=== PATIENT | female | born 1980 | race Caucasian/White ===

== ENCOUNTER 2020-02-02 22:19 | Emergency (ER) | payer OTHER, SELFPAY ==
--- NOTE | ~2020-02-02 | CT_ITS ---
EXAMINATION: CT abdomen pelvis w con DATE: 02/03/2020 01:06 INDICATION: Right lower quadrant abdominal pain TECHNIQUE: Computed tomography (CT) of the abdomen and pelvis was performed with 100 cc Omnipaque 350 intravenous contrast. The dose-length product was 269.03 mGy-cm. Automated exposure control and iter ative reconstruction technique were employed. COMPARISON: CT dated 06/26/2014 FINDINGS: Lung bases unremarkable. No significant pleural or pericardial effusion. Heart size normal. There are multiple cysts of the right ovary, largest measuring 7.3 x 4.4 cm. There is a cystic somewh at tubular structure right adnexa, possibly dilated fallopian tube. Left ovary and cyst measures up t o 3.8 x 3.2 cm with small amount of calcification along the posterior wall. Probable small left hydro salpinx. The liver, spleen, pancreas, adrenal glands and right kidney are unremarkable. Small subcentimeter hy podensities of the left kidney, most likely cysts. There are nonobstructing left renal stones. Bowel pattern is nonobstructive. Normal appendix. Small amount of free fluid in the pelvis. Small fat-conta ining umbilical hernia. No osteolytic or osteoblastic lesions. Status post hysterectomy. IMPRESSION: 1. Bilateral adnexal cystic lesions with possible bilateral hydrosalpinx. Small amount of free fluid in the pelvis. Differential diagnosis includes functional cysts, cystadenoma/cystadenocarcinoma. Alvaro mmend follow-up ultrasound in 3-4 weeks to assess for resolution. 2: Nonobstructing left nephrolithiasis. Reviewed, dictated and finalized at location A. MING POOL SERVICE TECHNICIAN IMPRESSION: 1. Bilateral adnexal cystic lesions with possible bilateral hydrosalpinx. Small amount of free fluid in the pelvis. Differential diagnosis includes functional cysts, cystadenoma/cystadenocarcinoma. Recommend follow-up ultrasound in 3-4 w eeks to assess for resolution. 2: Nonobstructing left nephrolithiasis.
[2020-02-02 22:23] VITALS: BP 153/96; PULSE 97; RESP 20; TEMP 36.1; O2SAT 100
[2020-02-02 23:52] VITALS: BP 129/89; PULSE 76; RESP 16; O2SAT 100
--- NOTE | 2020-02-03 00:12 | ED.ABDPAIN ---
HPI - Abdominal Pain General Chief Complaint: Abdominal Pain Stated Complaint: stomach pain Time Seen by Provider: 02/02/20 23:44 Source: patient and RN notes reviewed Mode of arrival: ambulatory Limitations: no limitations History of Present Illness HPI narrative: Pt is a 39 y/o female presenting to the ED c/o ABD pain. Pt reports she started experiencing diffuse ABD pain about 2 hrs ago. Pt also reports N/V, diarrhea, and chills, but denies rectal bleeding or hematuria. Pt notes she currently has bilateral ovarian cysts and a Hx of HTN, but denies Hx's of DM or Appendectomy. Pertinent past history: other (Bilateral ovarian cysts) Onset (ago): hour(s) (2) Location: diffuse Associated symptoms: nausea, vomiting, diarrhea and chills Related Data Allergies Allergy/AdvReac Type Severity Reaction Status Date / Time No Known Allergies Allergy Unknown Verified 07/23/15 17:18 Review of Systems Review of Systems: All systems reviewed & are unremarkable except as noted in HPI and below Constitutional: Constitutional: Reports chills Gastrointestinal: Gastrointestinal: Reports abdominal pain (Diffuse), Denies hematochezia, Reports diarrhea, Reports nausea and Reports vomiting Genitourinary: Genitourinary: Denies hematuria PMFSH Past Medical History Medical History Abnormal uterine bleeding Asthma Bronchitis HTN (hypertension) Kidney stone UTI (urinary tract infection) Surgical History Surgical History H/O dilation and curettage H/O tubal ligation H/O: hysterectomy Social History Social History (Updated 02/03/20 @ 00:31 by Lito Ramos) Smoking status: Unknown if ever smoked Gender identity (if verbalized by the patient): Female Exam Narrative: Exam Narrative: GENERAL: Well-appearing, well-nourished, and in no acute distress. HEAD: Normocephalic, atraumatic. EYES: PERRLA and EOMI. ENT: Nares clear, Mucous membranes moist. NECK: Supple. CHEST: Clear to auscultation. No respiratory distress. HEART: Regular rate and rhythm. No murmur heard. Normal peripheral pulses. ABDOMEN: Soft, Mild tenderness in the lower abd , nondistended, normal active bowel sounds. EXTREMITIES: Normal range of motion. No edema. SKIN: Warm, dry, no rash. NEURO: No focal deficits. Alert and oriented x3. PSYCH: Normal mood and affect. Course Course Emergency Course: Patient states her pain is much improved, I discussed CT findings with the patient and her . She is aware of her ovarian cyst and she wants referral to see Dr. Martinez. Vital Signs Vital signs: Vital Signs Temperature 36.1 C L 02/02/20 22:23 Pulse Rate 97 02/02/20 22:23 Respiratory Rate 20 02/02/20 22:23 Blood Pressure 153/96 H 02/02/20 22:23 Pulse Oximetry 100 02/02/20 22:23 Temperature 36.1 C L 02/02/20 22:23 Pulse Rate 96 02/03/20 01:40 Respiratory Rate 18 02/03/20 01:40 Blood Pressure 127/76 02/03/20 01:40 Pulse Oximetry 99 02/03/20 01:40 MDM - Abdominal Pain Lab Data Result diagrams: 02/03/20 00:22 02/03/20 00:22 Labs: Lab Results 02/02/20 02/03/20 02/03/20 Range/Units 23:56 00:22 00:22 WBC 11.2 H (4.5-10.0) K/mm3 RBC 3.97 L (4.2-5.4) M/mm3 Hgb 12.4 (12.0-15.0) g/dL Hct 36.1 L (37.0-47.0) % MCV 90.9 (80-100) fl MCH 31.2 (26-34) pg MCHC 34.3 (32-36) g/dl RDW 11.7 (11.5-14.5) % Plt Count 188 (150-375) k/mm3 MPV 10.7 H (7.4-10.4) fl Immature Gran % (Auto) 0.3 (0-0.5) % Neut % (Auto) 84.9 H (45.5-73.1) % Lymph % (Auto) 9.8 L (18.3-44.2) % Clare % (Auto) 4.6 (2.6-8.5) % Eos % (Auto) 0.2 (0-4.4) % Baso % (Auto) 0.2 (0.2-1.2) % Lymph # (Auto) 1.10 (0.9-3.2) K/mm3 Clare # (Auto) 0.5 (0.1-0.6) K/mm3 Eos # (Auto) 0.0 (0-0.3) K/mm3 Baso # (Auto) 0.0 (0.0-0.1) K/mm3 Abs Immat Gran (auto) 0.03 (0.00-0.031) K
[2020-02-03 00:28] LABS: Basophils Percent Auto 0.2 % (0.2-1.2); Eosinophils Percent Auto 0.2 % (0-4.4); Hematocrit 36.1 % (37.0-47.0); Hemoglobin 12.4 g/dL (12.0-15.0); Immature Granulocyte Absolute 0.03 K/mm3 (0.00-0.031); Immature Granulocyte Percent A 0.3 % (0-0.5); Lymphocytes Percent Auto 9.8 % (18.3-44.2); Mean Corpuscular HGB Conc 34.3 g/dl (32-36); Mean Corpuscular Hemoglobin 31.2 pg (26-34); Mean Corpuscular Volume 90.9 fl (80-100); Mean Platelet Volume 10.7 fl (7.4-10.4); Monocytes Absolute Auto 0.5 K/mm3 (0.1-0.6); Monocytes Percent Auto 4.6 % (2.6-8.5); Neutrophils Absolute Auto 9.5 K/mm3 (1.3-6.7); Neutrophils Percent Auto 84.9 % (45.5-73.1); Platelet Count Result 188 k/mm3 (150-375); Red Blood Count 3.97 M/mm3 (4.2-5.4); Red Cell Distribution Width 11.7 % (11.5-14.5); White Blood Count 11.2 K/mm3 (4.5-10.0)
[2020-02-03 00:28] LABS: Add Urine Microscopic? YES; Appearance Urine Cloudy (Clear); Bacteria Urine Trace /hpf; Bilirubin Urine Negative (Negative); Blood Urine Negative (Negative); Calcium Oxalate Crystals Urine Present /hpf; Color Urine Yellow (Yellow); Glucose Urine UA Negative (Negative); Ketones Urine Negative (Negative); Leukocyte Esterase Ur 2+ LEU/UL (Negative); Mucus Urine Heavy /lpf; Nitrate Urine Negative (Negative); Protein Urine Negative (Negative); Specific Grav Ur 1.026 (1.001-1.035); Squamous Epithelial Cell Urine Moderate /hpf (Few); Urobilinogen Urine Negative mg/dL (<2.0); WBC Urine 16-20 /hpf
[2020-02-03] MEDS: ONDANSETRON INJ 4 MG/2 ML VIAL IV PUSH (00:37)
[2020-02-03] MEDS: MORPHINE SULFATE 4 MG/ML INJ IV PUSH (00:37)
[2020-02-03] MEDS: SODIUM CHLORIDE 0.9% IV 1,000 ML 999 ML IV CONT (00:38)
[2020-02-03 00:41] LABS: Alanine Aminotransferase 24 U/L (4-35); Albumin Level 4.7 g/dL (3.5-5.1); Alkaline Phosphatase 84 U/L (38-126); Aspartate Amino Transferase 29 U/L (14-36); Bilirubin,Total 0.5 mg/dL (0.2-1.3); Blood Urea Nitrogen 13 mg/dL (7-17); Calcium 9.8 mg/dL (8.4-10.2); Carbon Dioxide 24 mmol/L (22-30); Chloride 103 mmol/L (98-107); Estimated CRCL calculation 101 ml/min; Estimated Glomerular Filt Rate > 60; Glucose 133 mg/dL (65-105); Lactic Acid Reflex 1.5 mmol/L (0.7-2.1); Lipase 80 U/L (23-300); Potassium 3.7 mmol/L (3.4-5.0); Sodium 136 mmol/L (137-145)
[2020-02-03 01:16] VITALS: BP 123/84; PULSE 91; RESP 18; O2SAT 100
[2020-02-03 01:40] VITALS: BP 127/76; PULSE 96; RESP 18; O2SAT 99
[2020-02-03 02:17] VITALS: BP 130/79; PULSE 80; RESP 18; O2SAT 99
== END 2020-02-03 02:19 | disposition home or self-care (01) ==
PROVIDERS: Emergency Provider Family Medicine; PCP Physician Assistant
DX: R10.30 Lower abdominal pain, unspecified (principal); I10 Essential (primary) hypertension; Z87.442 Personal history of urinary calculi; Z87.440 Personal history of urinary (tract) infections; J45.909 Unspecified asthma, uncomplicated; N83.202 Unspecified ovarian cyst, left side; N83.201 Unspecified ovarian cyst, right side
CPT/HCPCS: 36415; 74177; 80053; 81001; 83605; 83690; 85025; 87086; 87088; 96361; 96374; 96375; 99284; J2270; J2405; J7030; Q9967

== ENCOUNTER 2020-02-16 14:23 | Outpatient (CLI) | payer OTHER, SELFPAY ==
--- NOTE | ~2020-02-16 | US_ITS ---
EXAMINATION: US pelvic complete w TV DATE: 02/16/2020 15:00 INDICATION: Right lower quadrant pain, prior hysterectomy TECHNIQUE: Multiple transabdominal and endovaginal sonographic images of the pelvis were obtained. COMPARISON: CT, 02/03/2020 FINDINGS: The uterus is surgically absent. The right ovary measures 8.3 x 5.8 x 7.1 cm. The ovaries h eterogeneous in appearance with multiple cysts and apparent 4.6 x 3.5 cm solid appearing mass versus hemorrhagic cyst. The left ovary measures 5.6 x 3.5 x 3.1 cm. A simple cystic area of the left adnexa measures up to 3.6 cm. There is vascular flow in the ovaries. There is free fluid in the pelvis. IMPRESSION: 1. Complex bilateral adnexal lesions. Although findings could reflect combination of hemorrhagic and simple cysts, further evaluation by pelvic MRI without and with contrast is recommended. Reviewed, dictated and finalized at location A. IMPRESSION: 1. Complex bilateral adnexal lesions. Although findings could reflect combinati on of hemorrhagic and simple cysts, further evaluation by pelvic MRI without an d with contrast is recommended.
== END 2020-02-16 14:24 | disposition home or self-care (01) ==
LOC: ANHIMG 14:29
PROVIDERS: PCP Physician Assistant; Visit Provider Obstetrics & Gynecology
DX: R10.2 Pelvic and perineal pain (principal)
CPT/HCPCS: 76830; 76856

== ENCOUNTER 2021-10-27 10:36 | Outpatient (CLI) | payer OTHER, SELFPAY ==
--- NOTE | ~2021-10-27 | US_ITS ---
EXAMINATION: US pelvic complete w TV DATE: 10/27/2021 11:10 INDICATION: Bilateral ovarian cysts. Comparison:Ultrasound dated 02/16/2020 TECHNIQUE: Multiple transabdominal and endovaginal sonographic images of the pelvis performed. FINDINGS: The uterus is surgically absent. The right ovary is not visualized. The left ovary contains a 4.4 x 3.6 x 4.1 cm cyst. There is no free fluid in the pelvis. There are no abnormal masses seen on either side. IMPRESSION: 1. Left ovarian simple cyst measuring 4.4 cm. Reviewed, dictated and finalized at location B. EF OPERATOR
== END 2021-10-27 10:37 | disposition home or self-care (01) ==
LOC: ANHIMG 10:41
PROVIDERS: PCP Physician Assistant; Visit Provider Obstetrics & Gynecology Gynecology
DX: N83.202 Unspecified ovarian cyst, left side (principal)
CPT/HCPCS: 76830; 76856

== ENCOUNTER 2021-11-06 17:34 | Outpatient (CLI) | payer OTHER, SELFPAY ==
--- NOTE | ~2021-11-06 | MM_ITS ---
EXAMINATION: MM screening aurea BI w chaitanya HISTORY: Screening TECHNIQUE: Craniocaudal and mediolateral oblique 3-D tomosynthesis images were obtained and synthetic 2-D images were generated. CAD analysis was submitted and interpreted. COMPARISON: No prior mammogram is available for comparison at this institution. BREAST PARENCHYMAL COMPOSITION: There are scattered areas of fibroglandular density. FINDINGS: There is no evidence of suspicious mass, calcification, or architectural distortion to sugg est malignancy in either breast. There has been no suspicious interval change. IMPRESSION: 1. No mammographic evidence of malignancy. 2. Recommend routine screening mammography in one year. BI-RADS Category 1: Negative Reviewed, dictated and finalized at location A. CAL REVIEWER
== END 2021-11-06 17:35 | disposition home or self-care (01) ==
LOC: ANHIMG 17:36
PROVIDERS: PCP Physician Assistant; Visit Provider Obstetrics & Gynecology Gynecology
DX: Z12.31 Encounter for screening mammogram for malignant neoplasm of breast (principal)
CPT/HCPCS: 77063; 77067

== ENCOUNTER 2023-04-29 12:34 | Outpatient (CLI) | payer OTHER, SELFPAY ==
--- NOTE | ~2023-04-29 | US_ITS ---
EXAMINATION: US pelvic complete w TV DATE: 04/29/2023 13:35 INDICATION: Left ovarian cyst. TECHNIQUE: Multiple transabdominal and transvaginal sonographic images of the pelvis were obtained. COMPARISON: Ultrasound 10/27/2021, CT abdomen and pelvis 02/03/2020 FINDINGS: TRANSABDOMINAL ULTRASOUND: The uterus is absent. There is physiologic free fluid in the pelvis. TRANSVAGINAL ULTRASOUND: The right ovary is not visualized. The left ovary measures 3.1 x 2.1 x 1.8 cm. There is normal vascul ar flow in left ovary. IMPRESSION: 1. Normal left ovary. Reviewed, dictated and finalized at location A. IMPRESSION: 1. Normal left ovary.
== END 2023-04-29 12:35 | disposition home or self-care (01) ==
PROVIDERS: Visit Provider Obstetrics & Gynecology
DX: N83.209 Unspecified ovarian cyst, unspecified side (principal)
CPT/HCPCS: 76830; 76856

== ENCOUNTER 2023-08-30 08:49 | Emergency (ER) | payer SELFPAY ==
--- NOTE | ~2023-08-30 | CT_ITS ---
EXAMINATION: CT abdomen pelvis wo con DATE: 08/30/2023 09:41 INDICATION: Left flank pain TECHNIQUE: Computed tomography (CT) of the abdomen and pelvis was performed without intravenous contr ast. Automated exposure control and iterative reconstruction technique were employed. The dose-length product was 263.56 mGy-cm. COMPARISON: None FINDINGS: There are multiple discoid atelectasis in the right middle lobe and lingula. Heart size is normal. No pericardial or pleural effusion. Liver, gallbladder, spleen, pancreas and bilateral adrenal glands a re normal. 1 cm cyst at the lower pole of the left kidney. Bilateral nephrolithiasis with 5 stones me asuring up to 4 mm in the left kidney and 3 stones measuring up to 3 mm in the right kidney. No urete ral stones or hydronephrosis. Bladder is normal. The uterus is not identified and has likely been otilia gically resected. Bowels including the appendix are normal. Tiny fat-containing umbilical hernia. No free intraperitoneal gas or fluid. No pathologically enlarged abdominal or pelvic lymphadenopathy. Tr ansitional sacralized L5 segment with mild lumbar spondylosis. IMPRESSION: 1. Bilateral nonobstructing nephrolithiasis. No evident ureteral stones. Reviewed, dictated and finalized at location A.
[2023-08-30 09:08] VITALS: BP 120/85; PULSE 60; RESP 18; TEMP 36.7; O2SAT 100
--- NOTE | 2023-08-30 09:58 | ED.GENADULT ---
HPI - General Adult General Chief complaint: Back Pain/Injury Stated complaint: BACK PAIN X1D NO INJURY Time Seen by Provider: 08/30/23 09:06 Source: patient Mode of arrival: ambulatory Limitations: no limitations History of Present Illness HPI narrative: This is a 42-year-old female who presents to the ED with chief complaint of atraumatic back pain that began yesterday. Reports that she was sitting in the bathtub yesterday and noticed that when she was first getting out. Reports pain is in the left lower back/left flank area. Reports history of kidney stones in the past but this does not feel quite the same. She has additional concerns of difficulty with urination. She states that she is able to urinate just fine and if she stays well-hydrated, but it is difficult when she does not drink enough water. 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 Denies fevers, chills, nausea, vomiting, abdominal pain, bowel or bladder dysfunction, numbness, weakness. Related Data Allergies Allergy/AdvReac Type Severity Reaction Status Date / Time No Known Allergies Allergy Unknown Verified 08/30/23 09:11 Review of Systems Review of Systems: All systems as dictated in [facility] Past Medical History Medical History (Updated 08/30/23 @ 11:07 by Antoine Rivera PA-C) Abnormal uterine bleeding Asthma Bronchitis HTN (hypertension) Kidney stone UTI (urinary tract infection) Surgical History Surgical History H/O dilation and curettage H/O tubal ligation H/O: hysterectomy Social History Social History (Updated 02/03/20 @ 00:31 by Lito Ramos) Smoking status: Unknown if ever smoked Gender identity (if verbalized by the patient): Female Exam Narrative: GENERAL: Well-appearing, well-nourished, and in no acute distress. HEAD: Normocephalic, atraumatic. EYES: PERRLA and EOMI. ENT: Nares clear, no rhinorrhea or epistaxis. Mucous membranes moist. Oropharynx without tonsillar hypertrophy exudate or other lesions. NECK: Supple. No adenopathy or masses. CHEST: No respiratory distress. Clear to auscultation. No wheezes rales or rhonchi HEART: Regular rate and rhythm. No murmur heard. Normal peripheral pulses. ABDOMEN: Left flank tenderness. Soft, nontender, nondistended, normal active bowel sounds. MSK: Left lower lumbar paraspinal tenderness present. No midline spinal tenderness. Normal range of motion. No edema. SKIN: Warm, dry, no rash. NEURO: Alert and oriented x3. No focal deficits. PSYCH: Normal mood and affect. Course Vital Signs Vital signs: Vital Signs Temperature 98.1 F 08/30/23 09:08 Pulse Rate 60 08/30/23 09:08 Respiratory Rate 18 08/30/23 09:08 Blood Pressure 120/85 08/30/23 09:08 Pulse Oximetry 100 08/30/23 09:08 Oxygen Delivery Room Air 08/30/23 09:08 Temperature 98.1 F 08/30/23 09:08 Pulse Rate 60 08/30/23 11:19 Respiratory Rate 16 08/30/23 11:19 Blood Pressure 124/81 08/30/23 11:19 Pulse Oximetry 100 08/30/23 11:19 Oxygen Delivery Room Air 08/30/23 09:08 Medical Decision Making [facility] Narrative Medical decision making narrative: This is a 42-year-old female who presents to the ED with chief complaint of left lower back pain beginning yesterday. Also endorses urinary difficulty. Vitals are normal. Exam shows left flank and left lower paraspinal tenderness. Lab work shows a largely unremarkable CBC and CMP. Urinalysis shows 1+ leuks. CT abdomen pelvis without contrast is negative for any acute findings. No ureteral stones causing her pain. There may be a component of UTI contributing to pain but her symptoms are most likely consistent with lumbar strain as she has a laborious job as a water main pipe layer. Prescription for Keflex given. Pt will be discharged in stable condition. Return precautions given and supportive measures discussed. Pt is understanding and
[2023-08-30 10:36] VITALS: BP 137/83; PULSE 73; RESP 18; O2SAT 100
[2023-08-30 10:41] LABS: Basophils Percent Auto 0.7 % (0.2-1.2); Eosinophils Absolute Auto 0.2 K/mm3 (0-0.3); Eosinophils Percent Auto 5.4 % (0-4.4); Hematocrit 39.5 % (37.0-47.0); Hemoglobin 13.3 g/dL (12.0-15.0); Immature Granulocyte Absolute 0.01 K/mm3 (0.00-0.031); Immature Granulocyte Percent A 0.2 % (0-0.5); Lymphocytes Absolute Auto 1.64 K/mm3 (0.9-3.2); Lymphocytes Percent Auto 38.3 % (18.3-44.2); Mean Corpuscular HGB Conc 33.7 g/dl (32-36); Mean Corpuscular Hemoglobin 31.1 pg (26-34); Mean Corpuscular Volume 92.3 fl (80-100); Mean Platelet Volume 10.5 fl (7.4-10.4); Monocytes Absolute Auto 0.3 K/mm3 (0.1-0.6); Monocytes Percent Auto 7.5 % (2.6-8.5); Neutrophils Absolute Auto 2.1 K/mm3 (1.3-6.7); Neutrophils Percent Auto 47.9 % (45.5-73.1); Platelet Count Result 191 k/mm3 (150-375); Red Blood Count 4.28 M/mm3 (4.2-5.4); Red Cell Distribution Width 11.9 % (11.5-14.5); White Blood Count 4.3 K/mm3 (4.5-10.0)
[2023-08-30 10:51] LABS: Alanine Aminotransferase 29 U/L (6-35); Albumin Level 4.5 g/dL (3.5-5.1); Alkaline Phosphatase 116 U/L (38-126); Anion Gap 7 mmol/L (8-16); Aspartate Amino Transferase 27 U/L (14-36); Bilirubin,Total 0.7 mg/dL (0.2-1.3); Blood Urea Nitrogen 14 mg/dL (7-17); Calcium 9.7 mg/dL (8.4-10.2); Carbon Dioxide 26 mmol/L (22-30); Chloride 105 mmol/L (98-107); Estimated CRCL calculation 101 ml/min; Estimated Glomerular Filt Rate > 60; Glucose 94 mg/dL (65-110); Potassium 3.8 mmol/L (3.4-5.0); Sodium 138 mmol/L (137-145)
[2023-08-30 10:53] LABS: Appearance Urine Clear (Clear); Bacteria Urine Rare /hpf; Bilirubin Urine Negative (Negative); Blood Urine Negative (Negative); Color Urine Yellow (Yellow); Glucose Urine UA Negative (Negative); Ketones Urine Negative (Negative); Leukocyte Esterase Ur 1+ LEU/UL (Negative); Need Manual Microscopic Reviewed; Nitrate Urine Negative (Negative); Non Pathogenic Casts 0-2; Protein Urine Negative (Negative); RBC Urine 0-2 /hpf (0-2); Specific Grav Ur 1.014 (1.001-1.035); Squamous Epithelial Cell Urine Occasional /hpf (Few); Urobilinogen Urine 0.2 mg/dL (<2.0); WBC Urine 0-5 /hpf; pH Urine 6.5 (5.0-9.0)
[2023-08-30 11:03] LABS: Add Urine Microscopic? YES
[2023-08-30 11:19] VITALS: BP 124/81; PULSE 60; RESP 16; O2SAT 100
== END 2023-08-30 11:21 | disposition home or self-care (01) ==
PROVIDERS: Emergency Provider Physician Assistant; PCP Internal Medicine
DX: N39.0 Urinary tract infection, site not specified (principal); J45.909 Unspecified asthma, uncomplicated; I10 Essential (primary) hypertension; Z87.442 Personal history of urinary calculi; Z87.440 Personal history of urinary (tract) infections
CPT/HCPCS: 36415; 74176; 80053; 81001; 85025; 99284

== ENCOUNTER 2023-11-25 14:20 | Emergency (ER) | payer SELFPAY ==
[2023-11-25 14:29] VITALS: BP 119/69; PULSE 100; RESP 18; TEMP 36.4; O2SAT 99
--- NOTE | 2023-11-25 14:42 | PC.NURSE ---
pt seen leaving lobby with family
== END 2023-11-25 14:42 | disposition left against medical advice (07) ==
PROVIDERS: PCP Internal Medicine
DX: R19.7 Diarrhea, unspecified (principal)
CPT/HCPCS: 99199

== ENCOUNTER 2024-11-24 06:38 | Emergency (ER) | payer SELFPAY ==
--- NOTE | ~2024-11-24 | XR_ITS ---
EXAMINATION: XR chest 1V portable DATE: 11/24/2024 10:51 INDICATION: Shortness of breath TECHNIQUE: frontal view of the chest was obtained. COMPARISON: Chest radiograph dated 06/26/2014 FINDINGS: The lungs are clear with no focal airspace opacities, pulmonary edema, pleural effusion or pneumothor ax. The cardiomediastinal silhouette is normal. Visualized bones and soft tissues are unremarkable. IMPRESSION: 1. No acute cardiopulmonary disease. Reviewed, dictated and finalized at location B. L SPECIALIST
[2024-11-24 06:40] VITALS: BP 112/62; PULSE 79; RESP 18; TEMP 36.6; O2SAT 98
[2024-11-24 08:49] VITALS: BP 107/75; PULSE 58; RESP 20; TEMP 36.1; O2SAT 100
[2024-11-24 11:17] LABS: Strep Group A RT-PCR NOT DETECTED (Negative)
[2024-11-24 11:29] LABS: Influenza A QL RT-PCR Negative (Negative); Influenza B QL RT-PCR Negative (Negative); RSV RNA, RT-PCR Negative (Negative); SARS-CoV-2 RNA PCR Negative (Negative)
--- NOTE | 2024-11-24 11:40 | ED_ITS ---
HPI - General Adult General Chief complaint: Upper Respiratory Infection Stated complaint: cough, sore throat Time Seen by Provider: 11/24/24 10:40 History of Present Illness HPI narrative: 43-year-old female presenting to the emergency department for evaluation for cough congestion and flu-like symptoms that have been going on for almost a month. 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 Patient states she developed symptoms approximately a month ago and did have some minor improvement then began worsening again. Related Data Allergies Allergy/AdvReac Type Severity Reaction Status Date / Time No Known Allergies Allergy Unknown Verified 08/30/23 09:11 Review of Systems Review of Systems: All systems reviewed & are unremarkable except as noted in HPI and below PMFSH Past Medical History Medical History (Updated 11/24/24 @ 11:43 by Bin Lees MD) UTI (urinary tract infection) Kidney stone Abnormal uterine bleeding Bronchitis Asthma HTN (hypertension) Surgical History Surgical History H/O: hysterectomy H/O tubal ligation H/O dilation and curettage Social History Social History (Updated 02/03/20 @ 00:31 by Lito Ramos) Smoking status: Unknown if ever smoked Gender identity (if verbalized by the patient): Female Exam Narrative: APPEARANCE: Well appearing, no pain, no distress, well-nourished. HEAD: normocephalic, atraumatic. EYES: PERRLA/EOMI, conjunctivae clear. NOSE: Normal no drainage EARS:TMS clear with good light reflex. THROAT: Pharynx clear, no exudate. NECK: Supple. No adenopathy, no masses. RESPIRATORY: Airway patent, respirations nonlabored. Clear to auscultation bilaterally, no rales, rhonchi, wheezing. CARDIOVASCULAR: Regular rate and rhythm without murmurs rubs or gallops. ABDOMINAL: Soft, nontender, nondistended, normal bowel sounds MUSCULOSKELETAL: Moves all extremities. Strength/ROM intact, No edema, No calf tenderness. NEURO: Alert. Cranial nerves II through XII intact. Grossly intact SKIN: Warm, dry. Normal Color Course Vital Signs Vital signs: Vital Signs Temperature 97.8 F 11/24/24 06:40 Pulse Rate 79 11/24/24 06:40 Respiratory Rate 18 11/24/24 06:40 Blood Pressure 112/62 11/24/24 06:40 Pulse Oximetry 98 11/24/24 06:40 Oxygen Delivery Room Air 11/24/24 06:40 Temperature 98.5 F 11/24/24 12:21 Pulse Rate 75 11/24/24 12:21 Respiratory Rate 19 11/24/24 12:21 Blood Pressure 111/79 11/24/24 12:21 Pulse Oximetry 100 11/24/24 12:21 Oxygen Delivery Room Air 11/24/24 12:15 Medical Decision Making [facility] Narrative Medical decision making narrative: 43-year-old female presented emergency department for evaluation for worsening cough congestion and flu-like symptoms. Patient is afebrile and is negative for influenza RSV COVID and strep. Chest x-ray shows no acute cardiopulmonary abnormality. With the duration for the patient's symptoms I will be treating her with antibiotics for suspected underlying pneumonia. Patient will be discharged home with Tessalon Perles and albuterol inhaler. Differential Diagnosis Differential Diagnosis: COVID, RSV, influenza, pneumonia, bronchitis, pneumothorax Vital Signs Vital Signs: Vital Signs Temperature 97.8 F 11/24/24 06:40 Pulse Rate 79 11/24/24 06:40 Respiratory Rate 18 11/24/24 06:40 Blood Pressure 112/62 11/24/24 06:40 Pulse Oximetry 98 11/24/24 06:40 Oxygen Delivery Room Air 11/24/24 06:40 Temperature 98.5 F 11/24/24 12:21 Pulse Rate 75 11/24/24 12:21 Respiratory Rate 19 11/24/24 12:21 Blood Pressure 111/79 11/24/24 12:21 Pulse Oximetry 100 11/24/24 12:21 Oxygen Delivery Room Air 11/24/24 12:15 Lab Data Lab results reviewed: Yes I reviewed the patient's lab results. Labs: Lab Results 11/24/24 Range/Units 10:46 Influenza A (RT-PCR) Negative (Negative) Influenza B (RT-PCR) Negative (Negative) RSV (RT-PCR) Negative (Negative) SARS-CoV-2 RNA (RT-PCR) Negative (Negative) Group A Strep (PCR) Not detected (Negative) Imaging Data Radiologist's impression: Impressions Chest X-Ray 11/24/24 11:03 IMPRESSION: 1. No acute cardiopulmonary disease. Discharge Plan Discharge Clinical Impression: Upper respiratory infection, Pneumonia Patient Disposition: Home, Self-Care Condition: Stable Instructions: Antibiotic Form, Pneumonia (ED) Additional Instructions: Antibiotic as directed until completed. Albuterol inhaler for cough and shortness of breath, Tessalon Perles for cough. Have close follow-up with your primary care physician. If you have any worsening symptoms then please call or return to the emergency department. Patient Language: Senegalese Prescriptions: New amoxicillin-pot clavulanate 875-125 mg tablet 1 tablet PO Q12H Qty: 14 0RF benzonatate 100 mg capsule 100 mg PO TID PRN (Reason: cough) Qty: 14 0RF azithromycin 250 mg tablet See Rx Instructions .ROUTE .COMPLEX Qty: 6 0RF Rx Instructions: For 250 mg dose pack: take 500 mg today (day 1), then 250 mg for 4 days (days 2-5) albuterol sulfate 90 mcg/actuation HFA aerosol inhaler 1 puff inhalation QID Qty: 6.7 0RF No Action ondansetron 4 mg tablet,disintegrating 4 mg PO Q6-8H PRN (Reason: nausea and vomiting) Qty: 14 0RF tramadol 50 mg tablet 50 mg PO Q6H PRN (Reason: pain) Qty: 14 0RF cephalexin 500 mg capsule 500 mg PO Q8H 7 Days Qty: 21 0RF Follow-up/Referrals: Esthela,Salbador Mace MD [Primary Care Provider] - Stand Alone Forms: Work/School Release IP
[2024-11-24 12:15] VITALS: O2SAT 100
[2024-11-24] MEDS: AMOXICILLIN/CLAVULANATE K 875-125 MG TAB 1 TABLET PO (12:17)
[2024-11-24] MEDS: AZITHROMYCIN 250 MG TABLET 500 MG PO (12:17)
[2024-11-24 12:21] VITALS: BP 111/79; PULSE 75; RESP 19; TEMP 36.9; O2SAT 100
--- OUTSIDE RECORDS SUMMARY | 2024-12-01 11:54 | XMS_ITS | Data Portability ---
[facility] Organization [facility] HILDARobin BanksVirginia H Address [address] [place] [address] Care Team Providers Care Singing Teacher Name Role Phone TOM BARTHOLOMEW Application Tester Assessment Encounter Date Assessment Date Assessment LastModified by Organization Details LastModified Time 03/09/2024 03/09/2024 Had a CAT scan late last fall with nonobstructing stones we will go ahead and get a colonoscopy she does have a history of a 4 cm left ovarian simple cyst and we may need to have her referred to SECURITIES ADVISER as follow-up with me will be in 3 months colonoscopy blood work urinalysis push fluids if she is not any better no etiology found on colonoscopy then we may consider rescanning and having her see SECURITIES ADVISER. For hypertension losartan dyslipidemia atorvastatin and Zetia Not available 03/27/2024 23:22:15 10/30/2024 10/30/2024 her viral syndrome is resolving hyperlipidemia Zetia and low-fat diet she will follow up with me in 4 months [email or web address] Not available 11/30/2024 17:53:25 Plan of Treatment Reminders Order Date Submit Date Provider Last Modified By Organization Details Last Modified Time Details Appointments ANY 15 2024 03:15P M Collins Esparza MD Not available Not available Not available Lab urinalysi s, microscop ic 2023 024 NASREEN [facility], [address], [address] [address], [place], [address], 10/04/2024 12:37:39 CMP, serum or plasma 2023 024 NASREEN [facility], [address], [address], [place], [address], 10/04/2024 12:37:39 lipid panel, serum [address] [facility], [address], [address], [place], [address], 10/04/2024 12:37:38 CBC w/ auto diff [address] [facility], [address], [address], [place], [address], 10/04/2024 12:37:40 Referral gynecolog ist referral - 3.1 cm solid ovarian mass 2022 023 [email or web address] Abran Renae MD, [facility] , [address], [place], [address], 04/28/2023 12:26:45 gastroent erologist referral 2022 023 karissa Ojeda, [facility] , [address], [place], [address], 09/09/2023 10:44:16 Procedures colonosco py screening (PROC) - family of colon cancer 2023 024 [email or web address] Darlene Armstrong MD, [address], [address], [place], [address], 09/06/2024 11:45:07 Surgeries None recorded. Imaging None recorded. Medication Orders losartan 25 mg tablet 2022 023 NINEVEH [facility]05, [address], [place], [place], [id number], 08/25/2023 16:57:02 atorvasta tin 20 mg tablet 2022 023 NINEVEH [facility] #01832, [address] [place], [place], [id number], 08/25/2023 16:57:03 ezetimibe 10 mg tablet 2022 023 NASREEN [facility] #29370, [address] [place], [place], [id number], 08/25/2023 16:57:04 losartan 25 mg tablet [address] [facility]64884, [address] [place], [place], [id number], 03/09/2024 17:42:40 atorvasta tin 20 mg tablet [address] [facility]44191, [address] [place], [place], [id number], 03/09/2024 17:42:40 ezetimibe 10 mg tablet [address] [facility] #34481, [address] [place] [address], [id number], 03/09/2024 17:42:40 Zetia 10 mg tablet [address] [facility]51461, [address] [place], [place], [id number], 10/30/2024 17:24:20 Patient TargetsNo targets recorded. Patient Instructions Encounter Date Encounter Id Patient Instructions Last Modified By Organization Details Last Modified Time 05/26/2023 [id number] constipation: care instructions [email or web address] Not available 05/26/2023 15:14:03 08/25/2023 [id number] tetanus and diphtheria booster: care instructions [email or web address] Not available 08/25/2023 16:56:56 learning about high blood pressure [facility] Not available 08/25/2023 16:56:56 high cholesterol : care instructions sieh Not available 08/25/2023 16:56:56 anemia: care instructions sieh Not available 08/25/2023 16:56:56 Reason for Referral Application Tester Referral for Ma ss of ovary 3.1 cm solid ovarian mass Referring Physician: Brandie Hedrick, Family Medicine, Encounter Date: 04/19/2023 Cuff Knitter Referral for Constipation Referring Physician: Abran Renae, ROLL OR TAPE EDGE MACHINE OPERATOR, Encounter Date: 05/26/2023 Results Created Date Observation Date Name Description Value Unit Range Abnormal Flag Note LastModifiedBy Organization Detail LastModifiedTime 10/03/20 24 10/04/2024 LIPID PROFI LE cholesterol, total 250 mg/dL 100-19 9 above high normal Not Available [facility] ([facility]) [address] [place], [address], 10/04/2024 12:37:38 10/03/2010/04/2024 LIPID PROFI LE triglyceride s 93 mg/dL 0-149 Not Available [facility] ([facility]) [address] [place], [address], 10/04/2024 12:37:38 10/03/20 24 10/04/2024 LIPID PROFI LE HDL cholesterol 59 mg/dL >39 Not Available [facility] ([facility]) [address] [place], [address], 10/04/2024 12:37:38 10/03/20 24 10/04/2024 LIPID PROFI LE VLDL cholesterol ivis 16 mg/dL 5-40 Not Available [facility] ([facility]) [address] [place], [address], 10/04/2024 12:37:38 10/03/2010/04/2024 LIPID PROFI LE LDL chol calc ([facility]) 175 mg/dL 0-99 above high normal Not Available [facility] ([facility]) [address] [place], [address], 10/04/2024 12:37:38 10/03/20 24 10/04/2024 COMP. METAB OLIC PANEL (14) glucose 90 mg/dL 70-99 Not Available [facility] ([facility]) [address] [place], [address], 10/04/2024 12:37:39 10/03/20 24 10/04/2024 COMP. METAB OLIC PANEL (14) BUN 13 mg/dL 6-24 Not Available [facility] ([facility]) [address] [place], [address], 10/04/2024 12:37:39 10/03/20 24 10/04/2024 COMP. METAB OLIC PANEL (14) creatinine 0.72 mg/dL 0.57-1 .00 Not Available [facility] ([facility]) [address] [place], [address], 10/04/2024 12:37:39 10/03/20 24 10/04/2024 COMP. METAB OLIC PANEL (14) eGFR 106 mL/mi n/1.7 3 >59 Not Available [facility] ([facility]) [address] [place], [address], 10/04/2024 12:37:39 10/03/20 24 10/04/2024 COMP. METAB OLIC PANEL (14) BUN/creatini ne ratio 18 9-23 Not Available [facility] ([facility]) [address] [place], [address], 10/04/2024 12:37:39 10/03/20 24 10/04/2024 COMP. METAB OLIC PANEL (14) sodium 142 mmol/ L 134-14 4 Not Available [facility] ([facility]) [address] [place], [address], 10/04/2024 12:37:39 10/03/20 24 10/04/2024 COMP. METAB OLIC PANEL (14) potassium 4.1 mmol/ L 3.5-5. 2 Not Available [facility] ([facility]) [address] [place], [address], 10/04/2024 12:37:39 10/03/20 24 10/04/2024 COMP. METAB OLIC PANEL (14) chloride 106 mmol/ L 96-106 Not Available [facility] ([facility]) [address] [place], [address], 10/04/2024 12:37:39 10/03/20 24 10/04/2024 COMP. METAB OLIC PANEL (14) carbon dioxide, total 23 mmol/ L 20-29 Not Available [facility] ([facility]) [address] [place], [address], 10/04/2024 12:37:39 10/03/20 24 10/04/2024 COMP. METAB OLIC PANEL (14) calcium 9.6 mg/dL 8.7-10 .2 Not Available [facility] ([facility]) [address] [place], [address], 10/04/2024 12:37:39 10/03/20 24 10/04/2024 COMP. METAB OLIC PANEL (14) protein, total 6.9 g/dL 6.0-8. 5 Not Available [facility] ([facility]) [address] [place], [address], 10/04/2024 12:37:39 10/03/20 24 10/04/2024 COMP. METAB OLIC PANEL (14) albumin 4.5 g/dL 3.9-4. 9 Not Available [facility] ([facility]) [address] [place], [address], 10/04/2024 12:37:39 10/03/20 24 10/04/2024 COMP. METAB OLIC PANEL (14) globulin, total 2.4 g/dL 1.5-4. 5 Not Available [facility] ([facility]) [address] [place], [address], 10/04/2024 12:37:39 10/03/20 24 10/04/2024 COMP. METAB OLIC PANEL (14) bilirubin, total 0.3 mg/dL 0.0-1. 2 Not Available [facility] ([facility]) [address] [place], [address], 10/04/2024 12:37:39 10/03/20 24 10/04/2024 COMP. METAB OLIC PANEL (14) alkaline phosphatase 104 IU/L 44-121 Not Available [facility] ([facility]) [address] [place], [address], 10/04/2024 12:37:39 10/03/20 24 10/04/2024 COMP. METAB OLIC PANEL (14) AST (SGOT) 20 IU/L 0-40 Not Available [facility] ([facility]) [address] [facility], [place], [address], 10/04/2024 12:37:39 10/03/20 24 10/04/2024 COMP. METAB OLIC PANEL (14) ALT (SGPT) 20 IU/L 0-32 Not Available [facility] ([facility]) [address] [facility], [place], [address], 10/04/2024 12:37:39 10/03/20 24 10/04/2024 MICRO SCOPI C EXAMI NATIO N WBC 0-5 /hpf 0-5 Not Available [facility] ([facility]) [address] [place], [address], 10/04/2024 12:37:39 10/03/20 24 10/04/2024 MICRO SCOPI C EXAMI NATIO N RBC 3-10 /hpf 0-2 abnormal Not Available [facility] ([facility]) [address] [place], [address], 10/04/2024 12:37:39 10/03/20 24 10/04/2024 MICRO SCOPI C EXAMI NATIO N epithelial cells (non renal) 0-10 /hpf 0-10 Not Available [facility] ([facility]) [address] [facility], [place], [address], 10/04/2024 12:37:39 10/03/20 24 10/04/2024 MICRO SCOPI C EXAMI NATIO N casts None seen /lpf nonese en Not Available [facility] ([facility]) [address] [facility], [place], [address], 10/04/2024 12:37:39 10/03/2010/04/2024 MICRO SCOPI C EXAMI NATIO N bacteria Few nonese en/few Not Available [facility] ([facility]) [address] [facility], [place], [address], 10/04/2024 12:37:39 10/03/20 24 10/04/2024 CBC WITH DIFFE RENTI AL/PL ATELE T WBC 3.9 x10e3 /uL 3.4-10 .8 Not Available [facility] ([facility]) [address] [facility], [place], [address], 10/04/2024 12:37:40 10/03/20 24 10/04/2024 CBC WITH DIFFE RENTI AL/PL ATELE T RBC 4.03 x10e6 /uL 3.77-5 .28 Not Available [facility] ([facility]) [address] [facility], [place], [address], 10/04/2024 12:37:40 10/03/20 24 10/04/2024 CBC WITH DIFFE RENTI AL/PL ATELE T hemoglobin 12.7 g/dL 11.1-1 5.9 Not Available [facility] ([facility]) [address] [facility], [place], [address], 10/04/2024 12:37:40 10/03/20 24 10/04/2024 CBC WITH DIFFE RENTI AL/PL ATELE T hematocrit 38.1 % 34.0-4 6.6 Not Available [facility] ([facility]) [address] [facility], [place], [address], 10/04/2024 12:37:40 10/03/20 24 10/04/2024 CBC WITH DIFFE RENTI AL/PL ATELE T MCV 95 fL 79-97 Not Available [facility] ([facility]) [address] [facility], [place], [address], 10/04/2024 12:37:40 10/03/20 24 10/04/2024 CBC WITH DIFFE RENTI AL/PL ATELE T MCH 31.5 pg 26.6-3 3.0 Not Available [facility] ([facility]) [address] [facility], [place], [address], 10/04/2024 12:37:40 10/03/20 24 10/04/2024 CBC WITH DIFFE RENTI AL/PL ATELE T MCHC 33.3 g/dL 31.5-3 5.7 Not Available [facility] ([facility]) [address] [facility], [place], [address], 10/04/2024 12:37:40 10/03/20 24 10/04/2024 CBC WITH DIFFE RENTI AL/PL ATELE T RDW 11.6 % 11.7-1 5.4 below low normal Not Available [facility] ([facility]) [address] [place], [address], 10/04/2024 12:37:40 10/03/20 24 10/04/2024 CBC WITH DIFFE RENTI AL/PL ATELE T platelets 217 x10e3 /uL 150-45 0 Not Available [facility] ([facility]) [address] [place], [address], 10/04/2024 12:37:40 10/03/20 10/04/2024 CBC WITH DIFFE RENTI AL/PL ATELE T neutrophils 42 % notest ab. Not Available [facility] ([facility]) [address] [facility], [place], [address], 10/04/2024 12:37:40 10/03/20 24 10/04/2024 CBC WITH DIFFE RENTI AL/PL ATELE T lymphs 42 % notest ab. Not Available [facility] ([facility]) [address] [facility], [place], [address], 10/04/2024 12:37:40 10/03/20 24 10/04/2024 CBC WITH DIFFE RENTI AL/PL ATELE T monocytes 10 % notest ab. Not Available [facility] ([facility]) [address] [facility], [place], [address], 10/04/2024 12:37:40 10/03/20 24 10/04/2024 CBC WITH DIFFE RENTI AL/PL ATELE T eos 5 % notest ab. Not Available [facility] ([facility]) [address] [facility], [place], [address], 10/04/2024 12:37:40 10/03/20 24 10/04/2024 CBC WITH DIFFE RENTI AL/PL ATELE T basos 1 % notest ab. Not Available [facility] ([facility]) [address] [facility], [place], [address], 10/04/2024 12:37:40 10/03/20 24 10/04/2024 CBC WITH DIFFE RENTI AL/PL ATELE T neutrophils (absolute) 1.7 x10e3 /uL 1.4-7. 0 Not Available [facility] ([facility]) [address] [facility], [place], [address], 10/04/2024 12:37:40 10/03/20 24 10/04/2024 CBC WITH DIFFE RENTI AL/PL ATELE T lymphs (absolute) 1.7 x10e3 /uL 0.7-3. 1 Not Available [facility] ([facility]) [address] [facility], [place], [address], 10/04/2024 12:37:40 10/03/20 24 10/04/2024 CBC WITH DIFFE RENTI AL/PL ATELE T monocytes(ab solute) 0.4 x10e3 /uL 0.1-0. 9 Not Available [facility] ([facility]) [address] [facility], [place], [address], 10/04/2024 12:37:40 10/03/20 24 10/04/2024 CBC WITH DIFFE RENTI AL/PL ATELE T eos (absolute) 0.2 x10e3 /uL 0.0-0. 4 Not Available [facility] ([facility]) [address] [facility], [place], [address], 10/04/2024 12:37:40 10/03/20 24 10/04/2024 CBC WITH DIFFE RENTI AL/PL ATELE T baso (absolute) 0.0 x10e3 /uL 0.0-0. 2 Not Available [facility] ([facility]) [address] [facility], [place], [address], 10/04/2024 12:37:40 10/03/20 24 10/04/2024 CBC WITH DIFFE RENTI AL/PL ATELE T immature granulocytes 0 % notest ab. Not Available [facility] ([facility]) [address] [facility], [place], [address], 10/04/2024 12:37:40 10/03/20 24 10/04/2024 CBC WITH DIFFE RENTI AL/PL ATELE T immature grans (abs) 0.0 x10e3 /uL 0.0-0. 1 Not Available [facility] ([facility]) [address] [facility], [place], [address], 10/04/2024 12:37:40 04/30/20 23 04/29/2023 US, pelvi s, trans abdom inal + trans vagin al No observ ation record ed. [facility] [address], [place], [address], 05/10/2023 17:43:51 08/30/20 23 08/30/2023 CT, abdom en + pelvi s, w/o contr ast No observ ation record ed. [facility] [address], [place], [address], 08/30/2023 18:01:39 11/24/20 24 11/24/2024 XR, chest No observ [facility]ion [facility] ed[facility] [address], [place], [address], 11/24/2024 15:38:48 Result Notes None recorded. Problems Name Problem SNOMED Code Status Onset Date Resolution Date Notes Provider Name and Address Organization Details Recorded Time Bilateral open-angl e glaucoma 808129844477 10823 Active 2016 treated at [facility] by Collins Cabrera; diagnosed August Jose Brenner PA-C Attn: Razia torres,[address] [place], [address], [facility] 7 12:18:53 Family history of diabetes mellitus 834848749 Active 2016 Jose Brenner PA-C Attn: Razia torres,[address] [facility], [place], [address], [facility] 7 12:23:08 Normal grief reaction 773348391 Active 2016 her mom's boyfriend suddenly of a heart attack .... Jose Brenner PA-C Attn: Razia torres,[address] [place], [address], [facility] 7 17:06:31 Upper respirato ry infection 00825754 Active 2016 Jose Brenner PA-C Attn: Razia torres,[address], [place], [address], [place] [facility] 7 10:56:31 Primary open angle glaucoma 11870043 Active 2017 mild : sees Dr Collins Cabrera, [facility] Jose Brenner PA-C Attn: Razia torres,[address], [place], [address], [place] [facility] 8 18:19:15 Acquired right hallux valgus 084833564399 106 Active 2017 Jose Brenner PA-C Attn: Razia torres,[address] [facility], [place], [address], [place] [facility] 8 13:26:02 Kidney stone 74233978 Active 2019 left ; see CT 02/03/2020 Jose Brenner PA-C Attn: Razia torres,[address] [facility], [place], [address], [place] [facility] 0 22:20:19 Dysuria 24578907 Active 2019 Jose Brenner PA-C Attn: Razia torres,[address] [facility], [place], [address], [place] [facility] 0 10:42:02 Pre-surge ry testing Active 2019 Jose Brenner PA-C Attn: Razia torres,[address] [facility], [place], [address], [place] [facility] 0 11:32:29 HIV screening Active 2021 Jose Brenner PA-C Attn: Razia torres,[address] [facility], [place], [address], [place] [facility] 2 09:46:14 At increased risk of nutrition al deficit 134153063 Active 2021 Jose Brenner PA-C Attn: Razia torres,[address] [facility], [place], [address], [place] [facility] 2 09:47:53 Serum vitamin B12 borderlin e low 325505732 Active 2021 Jose Brenner PA-C Attn: Razia g,[address] [place], [place], [address] [place] [address] 2, [place] [facility] 2 15:29:51 Allergic rhinitis 87762368 Active 2021 Jose Brenner PA-C Attn: Accountin g,[address] [place], [place], [address] [place] [address] 2, [place] [facility] 2 12:50:33 Acute sinusitis 23777293 Active 2021 Jose Brenner PA-C Attn: Accountmc g,[address] [place], [place], [address] [place] [address] 2, [place] [facility] 2 12:52:29 Essential hypertens ion 35564098 Active Jose Brenner PA-C Attn: Accountin g,[address] [place], [place], [address] [place] [address] 2, [place] - [facility] 6 12:54:33 Hyperlipi demia 78158315 Active Jose Brenner PA-C Attn: Accountmc g,[address] [place], [address] [place] [address] 2, [place] - [facility] 6 12:54:33 Dental abscess 960800203 Active Jose Brenner PA-C Attn: Accountin g,[address] [place], [place], [address] [place] [address] 2, [place] [facility] 5 15:44:00 Condyloma acuminata of vulva 263657969 Active [place], [place] - [facility] 4 18:55:55 Anemia 510463352 Active Jose Brenner PA-C Attn: Accountmc g,[address] [place], [place], [address] [place] [address] 2, [place] - [facility] 6 12:54:33 Depressiv e disorder 31299189 Active 2016 Jose Brenner PA-C Attn: Accountin g,[address] [facility], [place], [address], [place] [facility] 7 11:26:25 Insomnia 798927745 Active 2016 Jose Brenner PA-C Attn: Razia torres,[address] [facility], [place], [address], [place] [facility] 7 11:27:43 Adult health examinati on Active 2016 Jose Brenner PA-C Attn: Razia torres,[address] [facility], [place], [address], [place] [facility] 7 11:49:15 Problem Notes None recorded. Procedures Surgical History Date Name Laterality Status Provider Name and Address Organization Details Recorded Time 11/06/20 21 Date of Last Mammogram completed Mamie Sanchez [place] 04/19/2023 14:08:28 05/13/20 20 procedure on foot completed Lizette Palafox [place] 05/02/2021 16:48:37 08/24/20 17 AIMS completed Michelle Diaz [place] 08/24/2017 11:32:48 08/24/20 17 SLUMS EXAM completed Michelle Diaz [place] 08/24/2017 11:32:48 08/09/20 17 Date of Last Pap Smear completed MARGY [place] 08/09/2017 10:56:51 12/30/19 05 Tubal Ligation completed Marielle Gleason [place] 11/07/2014 10:48:44 10/29/19 99 Dilation and Curettage completed Marielle Gleason [place] 11/07/2014 10:48:25 hysterectomy completed Lavonne Rader [place] 03/09/2024 15:18:31 Imaging Results Imaging Date Name Status LastModified by Organization Details LastModified Time 04/29/2023 US, pelvis, transabdominal + transvaginal completed [facility] [address], [place], [address], 05/10/2023 17:43:51 08/30/2023 CT, abdomen + pelvis, w/o contrast completed [facility] [address], [place], [address], 08/30/2023 18:01:39 11/24/2024 XR, chest active [facility]quig[facility] [address], [place], [address], 11/24/2024 15:38:48 Procedure Notes None recorded. Medical Equipment None Reported. Allergies No known drug allergies Medications Name Sig Start Date Stop Date Status Note LastModified by Organization Details LastModified Time losartan 50 mg tablet TAKE 1 TABLET BY MOUTH EVERY MORNING 06/30 completed Not Available Not Available Not Available cyclobenzap rine 10 mg tablet TAKE 1 TABLET BY MOUTH EVERY 8 HOURS NEEDED 05/26 completed Not Available Not Available Not Available amoxicillin 500 mg capsule 06/30 completed Not Available Not Available Not Available latanoprost 0.005 % eye drops INSTILL 1 DROP INTO BOTH EYES EVERY NIGHT AT BEDTIME active Not Available Not Available No t Available atorvastati n 20 mg tablet TAKE 1 TABLET BY MOUTH EVERY MORNING active Not Available Not Available No t Available citalopram 40 mg tablet TAKE 1 TABLET BY MOUTH EVERY EVENING ABOUT 2 TO 3 HOURS BEFORE BEDTIME 05/02 completed Not Available Not Available Not Available trazodone 50 mg tablet TAKE 1 TABLET BY MOUTH EVERY DAY AT BEDTIME 05/02 completed Not Available Not Available Not Available polyethylen e glycol 3350 17 gram oral powder packet 08/09 completed Not Available Not Available Not Available atorvastati n 10 mg tablet TAKE 1 TABLET BY MOUTH EVERY MORNING 05/21 completed Not Available Not Available Not Available azithromyci n 250 mg tablet TK 2 TS PO ON DAY 1, THEN TK 1 T PO D FOR 4 DAYS 04/19 completed Not Available Not Available Not Available ibuprofen 800 mg tablet TAKE 1 TABLET BY MOUTH EVERY 8 HOURS WITH FOOD NEEDED 03/09 completed Not Available Not Available Not Available fluconazole 150 mg tablet TAKE 1 TABLET BY MOUTH TODAY THEN TAKE 1 TABLET BY MOUTH AFTER COMPLETIO N OF ANTIBIOTI C 04/30 completed Not Available Not Available Not Available benzonatate 200 mg capsule Take 1 capsule 3 times a day by oral route as needed for 10 days. 04/19 completed Not Available Not Available Not Available hydrocodone 5 mg-acetamin ophen 325 mg tablet 06/30 completed Not Available Not Available Not Available phenazopyri dine 200 mg tablet Take 1 tablet 3 times a day by oral route for 2 days. 05/21 completed Not Available Not Available Not Available metronidazo le 0.75 % (37.5 mg/5 gram) vaginal gel INSERT 1 APPLICATO RFUL VAGINALLY AT BEDTIME FOR 5 DAYS 04/23 completed Not Available Not Available Not Available Doc-Q-Lace 100 mg capsule Take 1 capsule twice a day by oral route with meals for 30 days. 08/09 completed Not Available Not Available Not Available penicillin V potassium 500 mg tablet 08/09 completed Not Available Not Available Not Available metronidazo le 500 mg tablet TAKE 1 TABLET BY MOUTH EVERY 12 HOURS FOR 7 DAYS 04/19 completed Not Available Not Available Not Available acetaminoph en 300 mg-codeine 30 mg tablet TK 1 T PO TID PRN P 05/02 completed Not Available Not Available Not Available ciprofloxac in 500 mg tablet Take 1 tablet twice a day by oral route for 10 days. 05/21 completed Not Available Not Available Not Available tramadol 50 mg tablet 05/21 completed Not Available Not Available Not Available amoxicillin 500 mg tablet 05/02 completed Not Available Not Available Not Available ketorolac 10 mg tablet 08/09 completed Not Available Not Available Not Available oxycodone-a cetaminophe n 5 mg-325 mg tablet TK 1 T PO Q 8 H PRF MODERATE PAIN 05/02 completed Not Available Not Available Not Available clonidine HCl 0.2 mg tablet 08/09 completed Not Available Not Available Not Available amoxicillin 875 mg tablet 08/09 completed Not Available Not Available Not Available citalopram 20 mg tablet TAKE 1 TABLET BY MOUTH EVERY EVENING 05/21 completed Not Available Not Available Not Available cephalexin 500 mg capsule TAKE 1 CAPSULE BY MOUTH EVERY 8 HOURS FOR 1 WEEK 03/09 completed Not Available Not Available Not Available ferrous sulfate 325 mg (65 mg iron) tablet Take 1 tablet twice a day by oral route with meals for 30 days. 06/30 completed Not Available Not Available Not Available losartan 25 mg tablet TAKE 1 TABLET BY MOUTH EVERY MORNING 2023 active Not Available Not Available Not Avai lable cyanocobala min (vit B-12) 1,[address] 1 tablet twice a day by sublingua l route for 30 days. 04/19 completed Not Available Not Available Not Available amoxicillin 400 mg/5 mL oral suspension 08/09 completed Not Available Not Available Not Available levofloxaci n 500 mg tablet 08/09 completed Not Available Not Available Not Available albuterol sulfate HFA 90 mcg/actuati on aerosol inhaler INHALE 2 PUFFS BY MOUTH EVERY 4 HOURS NEEDED 04/19 completed Not Available Not Available Not Available oxybutynin chloride 5 mg tablet 08/09 completed Not Available Not Available Not Available ondansetron 4 mg disintegrat ing tablet 05/21 completed Not Available Not Available Not Available losartan 100 mg tablet Take 1 tablet every day by oral route in the morning for 30 days. 01/11 completed Not Available Not Available Not Available fluticasone propionate 50 mcg/actuati on nasal spray,suspe nsion SHAKE LIQUID AND USE 1 SPRAY NASALLY TWICE DAILY 04/19 completed Not Available Not Available Not Available doxycycline hyclate 100 mg tablet 05/21 completed Not Available Not Available Not Available loratadine 10 mg tablet Take 1 tablet every day by oral route in the morning for 30 days. 04/19 completed Not Available Not Available Not Available naproxen 500 mg tablet TK 1 T PO BID WF 05/02 completed Not Available Not Available Not Available amoxicillin 875 mg-potassiu m clavulanate 125 mg tablet TAKE 1 TABLET BY MOUTH EVERY 12 HOURS FOR 10 DAYS 11/27 completed Not Available Not Available Not Available ezetimibe 10 mg tablet TAKE 1 TABLET BY MOUTH EVERY DAY 2023 active Not Available Not Available Not Avai lable Ciprodex 0.3 %-0.1 % ear drops,suspe nsion 05/21 completed Not Available Not Available Not Available nitrofurant oin monohydrate /macrocryst als 100 mg capsule Take 1 capsule every 12 hours by oral route for 7 days. 10/25 completed Not Available Not Available Not Available Fluvirin 3471-1259 (PF) 45 mcg(15 mcg x3)/0.5 mL intramuscul ar syringe 10/25 completed Not Available Not Available Not Available Vitals Date Recorded Body height Body mass index (BMI) Body weight Oxygen saturation Oxygen saturation in Arterial blood by Pulse oximetry Heart rate Respiratory rate Body temperature Systolic blood pressure Diastolic blood pressure Provider Name and Address Organization Details Last Updated DateTime 3 177.8 cm 20.4 kg/m2 34119.1 2 g 100 % 100 % 76 /min 18 /min 97.9 [degF] 109 mm[Hg] 76 mm[Hg] Mamie Sanchez MA [facility] 3 14:10:30 Date Recorded Body height Body mass index (BMI) Body weight Systolic blood pressure Diastolic blood pressure Provider Name and Address Organization Details Last Updated DateTime 05/26/2023 177.8 cm 20.5 kg/m2 63698.71 g 117 mm[Hg] 75 mm[Hg] Chitra Pacheco MA [facility] 3 14:13:20 Date Recorded Body height Body mass index (BMI) Body weight Heart rate Oxygen saturation Oxygen saturation in Arterial blood by Pulse oximetry Systolic blood pressure Diastolic blood pressure Provider Name and Address Organization Details Last Updated DateTime 3 177.8 cm 19.5 kg/m2 36219.5 6 g 89 /min 99 % 99 % 118 mm[Hg] 78 mm[Hg] Cristy Jarrett MA [facility] 3 16:40:02 Date Recorded Body height Body mass index (BMI) Body weight Heart rate Body temperature Oxygen saturation Oxygen saturation in Arterial blood by Pulse oximetry Systolic blood pressure Diastolic blood pressure Provider Name and Address Organization Details Last Updated DateTime 4 177.8 cm 19.3 kg/m2 55810.8 1 g 55 /min 98 [degF] 95 % 95 % 118 mm[Hg] 82 mm[Hg] Lavonne Rader MA [facility] 4 15:21:12 Date Recorded Body height Body mass index (BMI) Body weight Heart rate Oxygen saturation Oxygen saturation in Arterial blood by Pulse oximetry Systolic blood pressure Diastolic blood pressure Provider Name and Address Organization Details Last Updated DateTime 4 177.8 cm 20.2 kg/m2 58459.1 6 g 94 /min 97 % 97 % 132 mm[Hg] 68 mm[Hg] Divya Ortiz MA [facility] 4 15:50:47 Social History Question Answer Notes LastModified by Organizat ion Details LastModified Time Tobacco Smoking Status Former Smoker Marielle Gleason MA [facility], [facility] 11/07/2014 10:49:36 Do You Have An Advance Directive? No Information not available 08/09/2017 What Is Your Level Of Alcohol Consumption? None Information not available 05/26/2023 Are You Blind Or Do You Have Difficulty Seeing? No Information not available 05/02/2021 Is Blood Transfusion Acceptable In An Emergency? Yes Information not available 08/09/2017 What Is Your Level Of Caffeine Consumption? Heavy Information not available 08/09/2017 How Much Tobacco Do You Chew? None Information not available 08/09/2017 In The 14 Days Before Symptom Onset, Have You Had Close Contact With A Laboratory-confir med COVID-19 While That Case Was Ill? No Information not available 05/02/2021 In The 14 Days Before Symptom Onset, Have You Had Close Contact With A Person Who Is Under Investigation For COVID-19 While That Person Was Ill? No Information not available 05/02/2021 Have You Been To An Area Known To Be High Risk For COVID-19? Yes Information not available 05/02/2021 Are You Currently Employed? No Information not available 08/09/2017 Are You Deaf Or Do You Have Serious Difficulty Hearing? No Information not available 05/02/2021 What Type Of Diet Are You Following? REGULAR Information not available 08/09/2017 Which Illicit Or Recreational Drugs Have You Used? None Information not available 08/09/2017 Do You Or Have You Ever Used E-cigarettes Or Vape? Current User Of Electronic Cigarettes Information not available 04/19/2023 Education 12 Information no t available 08/09/2017 What Is The Highest Grade Or Level Of School You Have Completed Or The Highest Degree You Have Received? 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 No Information no t available 05/26/2023 Are There Any Guns Present In Your Home? No Information not available 05/02/2021 Live Alone Or With Others? With Others Information not available 08/09/2017 What Was The Date Of Your Most Recent Tobacco Screening? 10/30/2024 [email or web address] Information not available 10/30/2024 How Many Children Do You Have? 4 Information not available 08/09/2017 Performs Monthly Self-breast Exam? No Information no t available 08/09/2017 Do You Have Any Pets? Yes Information not available 05/26/2023 Do You Use Protection During Sex? No Information not available 08/09/2017 What Is Your Relationship Status? Information not available 08/09/2017 Do You Use Your Seat Belt Or Car Seat Routinely? Yes Information not available 05/02/2021 Seat Belts Used Routinely Yes Information not available 08/09/2017 Are You Sexually Active? Yes Information not available 08/09/2017 Do You Have Smoke And Carbon Monoxide Detectors In Your Home? Yes Information not available 05/02/2021 Are You Passively Exposed To Smoke? No Information no t available 05/02/2021 General Stress Level Medium Information not available 08/09/2017 Do You Use Any Illicit Or Recreational Drugs? No Information not available 05/02/2021 Do You Use Sunscreen Routinely? Yes Information not available 08/09/2017 Has Tobacco Cessation Counseling Been Provided? No Information not available 05/26/2023 How Many Years Have You Smoked Tobacco? 10 [email or web address] Information not available 11/07/2014 Do You Or Have You Ever Used Any Other Forms Of Tobacco Or Nicotine? Yes Information not available 04/19/2023 Sex: Female Functional Status Question Answer Note LastModified by Organization D etails LastModified Time Are you able to care for yourself? Yes Information not available 05/02/2021 What is your exercise level? Moderate Information not available 08/09/2017 Mental Status None recorded. Family History Relationship Description Onset Age of this Age Resolved Age Notes LastModified by Organization Details LastModified Time Mother Hypertensive disorder [email or web address] Not available 11/07 10:49:24 Mother Seizure [email or web address] Not availabl e 08/09/2017 11:07:03 Mother Chronic obstructive pulmonary disease [email or web address] Not available 08/09 11:07:16 Mother Malignant tumor of colon [email or web address] Not available 2023 15:17:47 Medical History Condition Response Other N High Blood Pressure Y Breast Cancer N Thyroid Problems N Kidney or Bladder Problems N GI Problems N Depression Y Blood Clots N Lung Disease N Acne N Breast Problem N Eating Disorder N Anemia Y Anesthesia Complications N Headaches/Migraines N Anxiety Disorder N Diabetes N Ovarian Cancer N Muscle, Joint, or Bone Problems N Blood Transfusions N Seizures/Epilepsy N Polyps Y Infertility N Acid Reflux (GERD) N Cancer N Abuse/Domestic Violence N Asthma Y Endometriosis N High Cholesterol Y Hepatitis N Liver Disease N Heart Disease N Pre-Eclampsia N Osteoporosis N Gynecological History Statement/Question Response Abnormal Pap N Date of Last Mammogram 11/06/2021 STIs/STDs N HPV Vaccine N Duration of Flow (days) 0 Age at Menarche 13 Current Control Method Hysterectom y Age at First Child 18 Frequency of Cycle (Q days) 0 Sexually Active? Y Menses Monthly N Date of Last Pap Smear 08/09/2017 Sexual Problems? N LMP Desired Control Method Hysterectom y Obstetrics History GPAL:G 4 P 4 0 0 4 Type Value Full Term 4 Living 4 Total 4 Immunizations Vaccine Type Date Status Note Provider Nam e and Address Organization Details Recorded Time SARS-COV-2 (COVID-19) vaccine, UNSPECIFIED 1 completed Not Available [facility] 01/12/2023 12:46:26 COVID-19, mRNA, LNP-S, PF, 100 mcg/0.5mL dose or 50 mcg/0.25mL dose 1 completed Not Available [facility] 01/12/2023 12:46:26 Past Encounters Encounter ID Performer Location Encounter Start Date Encounter Closed Date Diagnosis/Indication Diagnosis SNOMED-CT Code Diagnosis ICD10 Code [id number] Michael (ROLL OR [employer] MACHINE OPERATOR) [address] [place] [address] 77210-308 0 11/07/2014 10:12:44 11/07/2014 11:52:57 Condyloma acuminata of vulva 642005161 [id number] NEDA Mejia (Adult Med) [address] [place] [address] 47447-729 0 07/30/2015 15:06:06 07/31/2015 13:16:38 Essential hypertension 15272738 Hyperlipidemia 90081245 Dental abscess 685429899 [id number] EJ Lovell (Adult Med) [address] [place] [address] 25217-641 0 03/12/2016 11:25:53 03/12/2016 12:57:44 Essential hypertension 60820797 I10 Hyperlipidemia 82130330 E78.5 Anemia 174387981 D64.9 [id number] EJ Lovell (Adult Med) [address] [place] [address] 15671-147 0 01/11/2017 09:58:48 01/11/2017 15:27:24 Depressive disorder 63871044 F32.89 Insomnia 201391907 G47.0 0 Hyperlipidemia 93100596 E78.5 Anemia 397294414 D64.9 Essential hypertension 17031233 I10 [id number] NEDA Sheth (ROLL OR TAPE ED[employer] MACHINE OPERATOR) [address] [place] [address] 46753-217 0 08/09/2017 10:37:16 08/09/2017 12:05:12 Cyst of ovary 47960496 N83.209 Urinary tr act infectious disease 75304318 N39.0 [id number] NEDA Keita (ROLL [employer]APE ED[employer] MACHINE OPERATOR) [address] [place] [address] 08372-045 0 08/11/2017 11:18:36 08/11/2017 13:36:53 Cyst of ovary 92061288 N83.209 Urinary tr act infectious disease 64692123 N39.0 [id number] EJ Lovell (Adult Med) [address] [place] [address] 35793-043 0 08/24/2017 11:09:42 08/24/2017 11:56:10 Adult health examination 336430930 Z00.00 Hyperlipidemia 04238196 E78.5 Essential hypertension 79827873 I10 Insomnia 596933161 G47.0 0 Anemia 538075247 D64.9 Depressive disorder 3548 7 F32.89 [id number] EJ Lovell (Adult Med) [address] [place] [address] 83667-032 0 10/25/2017 10:52:08 10/26/2017 08:58:15 Essential hypertension 44302363 I10 Depressive disorder 35477 F32.89 Hyperlipidemia 37283492 E78.5 Insomnia 020012368 G47.0 0 Family his tory of diabetes mellitus 465888893 Z83.3 [id number] EJ Lovell (Adult Med) [address] [place] [address] 19151-065 0 11/24/2017 10:24:06 11/24/2017 11:03:22 Upper respiratory infection 70273833 J06.9 Hyperlipidemia 33077575 E78.5 Essential hypertension 91538272 I10 Insomnia 488825139 G47.0 0 [id number] EJ Lovell (Adult Med) [address] [place] [address] 98674-057 0 06/30/2018 11:42:46 06/30/2018 16:51:52 Acquired right hallux valgus 0337351138 72415 M20.11 Hyperlipidemia 94872876 E78.5 Essential hypertension 61034975 I10 Primary op en angle glaucoma 41193253 H40.1130 Bilateral open-angle glaucoma 7537570363 0480130 H40.10X0 Depressive disorder 8 7 F32.89 Anemia 987477265 D64.9 [id number] EJ Lovell (Adult Med) [address] [place] [address] 55025-232 0 07/17/2019 11:42:40 07/17/2019 12:37:54 Hyperlipidemia 93362681 E78.5 Essential hypertension 61229495 I10 Insomnia 806428352 G47.0 0 Normal grief reaction 27 4270876 F43.20 Depressive disorder 3548 7 F32.89 Bilateral open-angle glaucoma 1635520536 5716610 H40.10X0 [id number] EJ Lovell (Adult Med) [address] [place] [address] 22348-691 0 02/19/2020 14:35:07 02/19/2020 15:02:48 Acquired right hallux valgus 8165274783 94265 M20.11 Essential hypertension 39121396 I10 Hyperlipidemia 05684883 E78.5 Insomnia 043820525 G47.0 0 Depressive disorder 3548 9007 F32.89 [id number] EJ Lovell (Adult Med) [address] [place] [address] 46657-434 0 03/26/2020 09:52:14 03/26/2020 10:49:39 Dysuria 24745877 R30.9 Kidney stone 17791259 N2 0.0 [id number] EJ Lovell (Adult Med) [address] [place] [address] 88329-280 0 04/19/2020 08:19:32 04/19/2020 11:41:50 Acquired right hallux valgus 7778982449 61236 M20.11 Pre-surgery testing 1104 50818 Z01.89 Depressive disorder 3548 9007 F32.89 Insomnia 755008996 G47.0 0 Anemia 046078542 D64.9 Essential hypertension 59718482 I10 Hyperlipidemia 98835247 E78.5 Primary op en angle glaucoma 69664050 H40.2789 [id number] MD Michael Castano (Adult Med) [address] [place] [address] 01125-872 0 05/21/2020 16:23:47 05/24/2020 09:55:05 Acquired right hallux valgus 5581379468 70670 M20.11 [id number] EJ Lovell (Adult Med) [address] [place] [address] 11373-528 0 05/02/2021 15:53:10 05/05/2021 10:24:41 Essential hypertension 62914878 I10 Hyperlipidemia 77932246 E78.5 Insomnia 343412075 G47.0 0 Depressive disorder 3548 9007 F32.89 [id number] EJ Lovell (Adult Med) [address] [place] [address] 82503-824 0 04/23/2022 09:19:32 04/28/2022 10:08:40 Hyperlipidemia 01376371 E78.5 Essential hypertension 54144518 I10 HIV screening 664903834 Z11.4 Insomnia 445292349 G47.0 0 At [facility] ed risk of nutritional deficit 212518400 Z91.89 Acquired r ight hallux valgus 7921247128 85730 M20.11 Depressive disorder 3548 9007 F32.89 Primary op en angle glaucoma 56463489 H40.3482 [id number] EJ Lovell (Adult Med) [address] [place] [address] 69337-481 0 07/21/2022 12:25:15 07/22/2022 10:32:09 Allergic rhinitis 87997833 J30.9 Acute sinusitis 61046248 J01.90 Hyperlipidemia 32821520 E78.5 Bilateral open-angle glaucoma 1099469264 6342267 H40.10X0 Depressive disorder 3548 9007 F32.89 Essential hypertension 73561535 I10 Insomnia 118348250 G47.0 0 Serum cedric min B12 borderline low 138801586 R79.89 [id number] MD Michael Castano (Adult Med) [address] [place] [address] 58011-348 0 11/27/2022 16:56:00 12/01/2022 14:46:09 Acute bronchitis 74126150 J20.9 SARS-CoV-2 mRNA vaccine declined 6946321071 Z28.21 Screening for malignant neoplasm of cervix 660021864 Z12.4 Administra tion of diphtheria, pertussis, and tetanus vaccine 003824262 Z23 [id number] MD Michael Howard (Adult Med) [address] [place] [address] 05655-448 0 04/19/2023 13:07:49 04/28/2023 12:26:44 Mass of ovary 548878139 R19.09 [id number] MD Sohan Douglass [address] [place] [address] 05/26/2023 13:55:34 05/30/2023 08:39:44 Constipation 11768508 K59.00 [id number] Salbador Proctor MD [facility] (Adult [facility]) [address] [place] [address] 08/25/2023 16:27:37 08/30/2023 16:27:21 Anemia 418166453 D64.9 Essential hypertension 77443525 I10 Hyperlipidemia 97860336 E78.5 Influenza vaccination declined 991180173 Z28.21 Cervical c ancer Papanicolaou smear screening declined 4662933380 66482 Z53.20 Administra tion of diphtheria, pertussis, and tetanus vaccine 551535006 Z23 [id number] Collins Esparza MD [facility] [employer] [address] [place] [address] 03/09/2024 14:42:46 03/09/2024 16:14:50 Abdominal pain 18320752 R10.9 Essential hypertension 31752425 I10 Hyperlipidemia 05524885 E78.5 [id number] Collins Esparza MD [facility] [employer] [address] [place] [address] 10/30/2024 15:29:13 10/30/2024 17:07:12 Body mass index 20-24 - normal 821236463 Z68.20 Hyperlipidemia 77691886 E78.5 Vitamin D below reference range 090974925 E55.9 Health Concerns Section Related Observation LastModified by Organization Detai ls LastModified Time None Recorded Concern Status LastModified by Organization Details LastModified Time None Recorded Advance Directives Directive N: Payers Encounter Date Sequence Insurance Name Policy Number Policy Ruiz Covered Member ID Ruiz Member ID Guarantor Name 04/19/2023 1 [facility] ON OR AFTER 05/29/21 (MEDICAID REPLACEMENT - HMO) Lara Monaco [id number] Lara Monaco 05/26/2023 1 [facility] - DOS ON OR AFTER 21 (MEDICAID REPLACEMENT - HMO) Lara Monaco [id number] Lara Monaco 08/25/2023 1 *SELF PAY* Cr rocio Monaco 10/30/2024 1 *SELF PAY* Cr rocio Monaco Notes Date Note Type Note Provider Name and Address Organization Details Recorded Time 04/19/2023 text/html here for follow up of ER visit, had mass on left ovary, went to the ER for abdominal pain, has intermittent abdominal pain that sometimes lasts for weeks, has been about eight months, sometimes severe, does not have periods, had hysterectomy in 2004, no unexplained weight loss, weight fluctuates, sweats all the time, tomorrow is last day of work, Brandie Hedrick MD Attn: Accounting, [address] [place], [address], [facility] 04/28/2023 10:41:46 05/26/2023 text/html Patient presents as a referral from her PCP . An incidental solid mass noted near the left ovary, however follow up ultrasound showed a normal left ovary with no mass. She admits to some pelvic pain that is worse on the right side, however she states that she suffers from constipation and only has a bowel movement once a week. Abran Renae MD Attn: Accounting, [address] [place], [address], [facility] 05/26/2023 15:14:50 08/25/2023 text/html Office visit, DULCE SMITH. came with her boy friend. check up and med refills. Salbador Proctor MD Attn: Accounting, [address] [place], [address], [facility] 08/25/2023 16:57:16 03/09/2024 text/html 43-year-old she has had some abdominal pain has been vague without any fever chills night sweats weight loss or genitourinary complaints no change in bowel habits Collins Esparza MD Attn: Accounting, [address] [place], [address], [facility] 03/27/2024 23:22:53 10/30/2024 text/html viral syndrome t hat is starting to resolve she had some aches pains low-grade temp maybe a mild cough that is resolving. 2. Dyslipidemia she needs to have a low-fat diet and she needs some medication Collins Esparza MD Attn: Accounting, [address] [place], [address], [facility] 11/30/2024 17:54:10 OBGyn Episode Ob Episode Information Episode Created Date Number of Fetuses Patient Bloodtype Patient rh Status Prepregnancy Weight lbs Domestic Partner Domestic Partner Phone Father Name [employer] Business Teacher Status 08/09/20 17 1 CLOSED Fetus Data First Name Last Name Admitted to NICU Weight (g) Sex Living Outcome Pediatric Complications Fetus ID Race Codes Race Delivery Type 2976.47 0704 F Full Term [id number] Vaginal Velia Calculation VELIA Calculation Method Initial Velia Date Initial Exam Date Initial Exam Provider Initial Ultrasound Date Last Menstrual Period Date Ultra Sound Weeks Gestation Conception by IVF Embryo Age at Transfer Date of Transfer 0 Eighteen To Twenty Week Velia Update Ultra Sound Date Fundal Height At Umbil Quickening Date Ultra Sound Latest Weeks Gestation Final Velia Confirmed By Final Velia Confirmed Date Final Velia Date Ultra Sound Latest Days Gestation 0 0 Menstrual History Last Menstrual Date Menses Monthly On Bcp Conception Prior Menses Frequency Hcg Plus Date Menarche Onset Age Delivery Information Delivery Date Delivery Type Labor Anesthesia Weeks Gestation Incision Type Labor Labor Length Hrs Delivered By Post Complications Tubal Sterilization Discharge Date Comments 1 [facility]- idural 37 4 Discharge Information Feeding Method Contraceptive Method Maternal HG B and HCT Levels Ob Episode Information Episode Created Date Number of Fetuses Patient Bloodtype Patient rh Status Prepregnancy Weight lbs Domestic Partner Domestic Partner Phone Father Name [employer] Business Teacher Status 08/09/20 17 1 CLOSED Fetus Data First Name Last Name Admitted to NICU Weight (g) Sex Living Outcome Pediatric Complications Fetus ID Race Codes Race Delivery Type 3089.86 [id number] F Full Term [id number] Vaginal Velia Calculation VELIA Calculation Method Initial Velia Date Initial Exam Date Initial Exam Provider Initial Ultrasound Date Last Menstrual Period Date Ultra Sound Weeks Gestation Conception by IVF Embryo Age at Transfer Date of Transfer 0 Eighteen To Twenty Week Velia Update Ultra Sound Date Fundal Height At Umbil Quickening Date Ultra Sound Latest Weeks Gestation Final Velia Confirmed By Final Velia Confirmed Date Final Velia Date Ultra Sound Latest Days Gestation 0 0 Menstrual History Last Menstrual Date Menses Monthly On Bcp Conception Prior Menses Frequency Hcg Plus Date Menarche Onset Age Delivery Information Delivery Date Delivery Type Labor Anesthesia Weeks Gestation Incision Type Labor Labor Length Hrs Delivered By Post Complications Tubal Sterilization Discharge Date Comments 3 [facility] idural 37 4 Discharge Information Feeding Method Contraceptive Method Maternal HG B and HCT Levels Ob Episode Information Episode Created Date Number of Fetuses Patient Bloodtype Patient rh Status Prepregnancy Weight lbs Domestic Partner Domestic Partner Phone Father Name [employer] Business Teacher Status 08/09/20 17 1 CLOSED Fetus Data First Name Last Name Admitted to NICU Weight (g) Sex Living Outcome Pediatric Complications Fetus ID Race Codes Race Delivery Type 3458.63 9 M Full Term 11848 Vaginal Velia Calculation VELIA Calculation Method Initial Velia Date Initial Exam Date Initial Exam Provider Initial Ultrasound Date Last Menstrual Period Date Ultra Sound Weeks Gestation Conception by IVF Embryo Age at Transfer Date of Transfer 0 Eighteen To Twenty Week Velia Update Ultra Sound Date Fundal Height At Umbil Quickening Date Ultra Sound Latest Weeks Gestation Final Velia Confirmed By Final Velia Confirmed Date Final Velia Date Ultra Sound Latest Days Gestation 0 0 Menstrual History Last Menstrual Date Menses Monthly On Bcp Conception Prior Menses Frequency Hcg Plus Date Menarche Onset Age Delivery Information Delivery Date Delivery Type Labor Anesthesia Weeks Gestation Incision Type Labor Labor Length Hrs Delivered By Post Complications Tubal Sterilization Discharge Date Comments 5 [facility] idural 37 1.5 Discharge Information Feeding Method Contraceptive Method Maternal HG B and HCT Levels Ob Episode Information Episode Created Date Number of Fetuses Patient Bloodtype Patient rh Status Prepregnancy Weight lbs Domestic Partner Domestic Partner Phone Father Name [employer] Business Teacher Status 08/09/20 17 1 CLOSED Fetus Data First Name Last Name Admitted to NICU Weight (g) Sex Living Outcome Pediatric Complications Fetus ID Race Codes Race Delivery Type 2834.95 F Full Term [id number] Vaginal Velia Calculation VELIA Calculation Method Initial Velia Date Initial Exam Date Initial Exam Provider Initial Ultrasound Date Last Menstrual Period Date Ultra Sound Weeks Gestation Conception by IVF Embryo Age at Transfer Date of Transfer 0 Eighteen To Twenty Week Velia Update Ultra Sound Date Fundal Height At [place]mb[place] Quickening Date Ultra Sound Latest Weeks Gestation Final Velia Confirmed By Final Velia Confirmed Date Final Velia Date Ultra Sound Latest Days Gestation 0 0 Menstrual History Last Menstrual Date Menses Monthly On Bcp Conception Prior Menses Frequency Hcg Plus Date Menarche Onset Age Delivery Information Delivery Date Delivery Type Labor Anesthesia Weeks Gestation Incision Type Labor Labor Length Hrs Delivered By Post Complications [id number] Information Feeding Method Contraceptive Method Maternal HG B and HCT Levels
== END 2024-11-24 12:20 | disposition home or self-care (01) ==
PROVIDERS: Emergency Provider Emergency Medicine; PCP Internal Medicine
DX: J06.9 Acute upper respiratory infection, unspecified (principal); J18.9 Pneumonia, unspecified organism; I10 Essential (primary) hypertension; Z20.822 Contact with and (suspected) exposure to COVID-19
CPT/HCPCS: 71045; 87637; 87651; 99283; A9270